=== PATIENT | male | born 1975 | race Caucasian/White ===

== ENCOUNTER 2016-10-21 17:44 | Emergency (ER) | payer SELFPAY ==
[2016-10-21 17:45] VITALS: BMI 25.2
[2016-10-21] MEDS ORDERED: Sodium Chloride 0.9% 1,000 ML IV ONE (20:31)
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
[2016-10-21] MEDS ORDERED: Sodium Chloride 0.9% 1,000 ML ONE (21:08)
[2016-10-21] MEDS ORDERED: Lidocaine 2% w Epi 1:100,000 Inj IJ ONE (21:08)
[2016-10-21 21:11] LABS: BASO # 0.1 K/uL (0.0-0.2); BASO % 0.3 % (0.0-2.0); EOS % 0.1 % (0.0-4.0); HEMATOCRIT 45.8 % (35.0-51.0); LYMPH # 1.2 K/uL (1.0-4.3); LYMPH % 6.4 % (20.0-40.0); MEAN CELL VOLUME 90.1 fL (80.0-94.0); MEAN CORPUSCULAR HEMOGLOBIN 30.3 pg (27.0-31.0); MEAN CORPUSCULAR HGB CONC 33.6 g/dL (33.0-37.0); MEAN PLATELET VOLUME 7.2 fL (7.2-11.7); MONO # 0.8 K/uL (0.0-0.8); MONO % 4.4 % (0.0-10.0); PLATELET COUNT 249 K/uL (130-400); RED CELL DISTRIBUTION WIDTH 13.8 % (11.5-14.5); WHITE BLOOD COUNT 18.8 K/uL (4.8-10.8)
[2016-10-21 21:22] LABS: CHLORIDE 108 mmol/L (98-107); SODIUM 142 mmol/L (132-148)
[2016-10-21 21:23] LABS: POTASSIUM 4.1 mmol/L (3.6-5.2)
[2016-10-21 21:25] LABS: ALB/GLOB RATIO 1.2 (1.0-2.1); ALKALINE PHOSPHATASE 119 U/L (38-126); ALT/SGPT 42 U/L (21-72); AST/SGOT 46 U/L (17-59); BILIRUBIN,TOTAL 0.6 mg/dL (0.2-1.3); BLOOD UREA NITROGEN 12 mg/dL (9-20); CARBON DIOXIDE 22 mmol/L (22-30); GFR AFRICAN-AMERICAN > 60; GLUCOSE,RANDOM 104 mg/dL (75-110); TOTAL PROTEIN 7.6 g/dL (6.3-8.3)
[2016-10-21 21:26] LABS: ALCOHOL SERUM 168 mg/dl (0-10); CALCIUM 8.6 mg/dl (8.6-10.4)
[2016-10-21 21:46] LABS: NEUTROPHIL 89 % (50-75); TOTAL CELLS COUNTED 100
[2016-10-21] MEDS ORDERED: Lidocaine 1% w Epi 1:100,000 Inj ONE (21:56)
[2016-10-21] MEDS ORDERED: Lidocaine/Epi 1% 1:100000 20 ML IJ ONE (21:58)
[2016-10-21] MEDS ORDERED: Bacitracin 500 Units/gm Oint Foilpak UD ONE (22:57)
[2016-10-21 22:59] LABS: RBC URINE < 1 /hpf (0-3); URINE BILIRUBIN NEGATIVE (NEGATIVE); URINE BLOOD NEGATIVE (NEGATIVE); URINE COLOR Yellow (YELLOW); URINE GLUCOSE (UA) NORMAL (Normal); URINE KETONE NEGATIVE (NEGATIVE); URINE LEUKOCYTE ESTERASE NEG Leu/uL (Negative); URINE PROTEIN NEGATIVE (NEGATIVE); URINE UROBILINOGEN NORMAL mg/dL (0.2-1.0)
[2016-10-21] MEDS ORDERED: Bacitracin Ointment 30 GM TUBE TOP ONE (22:59)
[2016-10-22] MEDS ORDERED: Oxycodone/Acetaminophen 5/325 mg Tab PO STA (00:47)
[2016-10-22] MEDS ORDERED: Oxycodone/Acetaminophen 5/325 mg Tab ONE (00:49)
[2016-10-22 02:43] VITALS: BP 128/71; PULSE 89; RESP 18; TEMP 98; O2SAT 98
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
== END 2016-10-22 02:45 | disposition short-term general hospital (02) ==
LOC: C.ER 17:44
DX: S02.40FA Zygomatic fracture, left side, initial encounter for closed fracture (principal); S01.411A Laceration without foreign body of right cheek and temporomandibular area, initial encounter; Y04.2XXA Assault by strike against or bumped into by another person, initial encounter; Y93.89 Activity, other specified; Y92.89 Other specified places as the place of occurrence of the external cause; F10.129 Alcohol abuse with intoxication, unspecified; Y90.6 Blood alcohol level of 120-199 mg/100 ml; Z23 Encounter for immunization
CPT/HCPCS: 12013; 70450; 70486; 71010; 80053; 81001; 85025; 90471; 90715; 96360; 99285; G0480; J7040